=== PATIENT | female | born 1985 | race Caucasian/White ===

== ENCOUNTER 2017-05-26 12:19 | Day surgery (SDC) | payer MEDICAID ==
[~2017-05-26 12:19] MED LIST: Bupivacaine 0.5% 30 ML SDV ONE
[2017-05-26] MEDS ORDERED: Sodium Chloride 0.9% 10 ML Syringe FLUSH PRN (12:55)
[2017-05-26] MEDS ORDERED: Lidocaine 1%/Sod Bicarbonate in NS 8.4% 1 ML Syringe IV PRN (12:55)
[2017-05-26] MEDS ORDERED: Lactated Ringers 1,000 ML IV SCH (13:00)
--- NOTE | 2017-05-26 13:04 | PCM.PREANE ---
Preanesthetic Assessment - Anesthesia/Transfusion/Family Hx Anesthesia History: Prior Anesthesia Without Reaction Other Type of Anesthesia Reaction Comment: Denies any known problems in past Family History of Anesthesia Reaction: No Transfusion History: No Prior Transfusion(s) - Review of Systems General: No Symptoms Pulmonary: No Symptoms Cardiovascular: No Symptoms Gastrointestinal: No Symptoms Neurological: No Symptoms Other: Reports: Diabetes (partial), Thyroid Problems - Physical Assessment NPO Status Date: 05/25/17 NPO Status Time: 22:00 Pulse: 83 O2 Sat by Pulse Oximetry: 98 Respiratory Rate: 16 Blood Pressure: 123/80 Temperature: 98.5 F Height: 5 ft 7 in Weight: 99.3 kg ASA Class: 2 Mental Status: Alert & Oriented x3 Airway Class: Mallampati = 1 Dentition: Reports: Normal Dentition Thyro-Mental Finger Breadths: 3 Mouth Opening Finger Breadths: 3 ROM/Head Extension: Full Lungs: Clear to Auscultation, Normal Respiratory Effort Cardiovascular: Regular Rate, Regular Rhythm - Allergies Allergies/Adverse Reactions: Allergies Allergy/AdvReac Type Severity Reaction Status Date / Time No Known Allergies Allergy Verified 04/21/14 13:38 ACCOUNT EXECUTIVE KEY ACCOUNTS - Blood Blood Available: No - Acknowledgements Anesthesia Type Planned: General Anesthesia Pt an Appropriate Candidate for the Planned Anesthesia: Yes Alternatives and Risks of Anesthesia Discussed w Pt/Guardian: Yes Pt/Guardian Understands and Agrees with Anesthesia Plan: Yes PreAnesthesia Questionnaire Cardiovascular History: Reports: None Respiratory History: Reports: None, Sleep Apnea Gastrointestinal History: Reports: None Endocrine/Metabolic History: Reports: Hypothyroidism, IDDM, Obesity/BMI 30+ Oncologic (Cancer) History: Reports: None - Past Surgical History GI Surgical History: Reports: Hernia, Abdominal Female Surgical History: Reports: Section - History Comment History Comment: metformin and phentermine - SUBSTANCE USE Smoking Status *Q: Never Smoker Tobacco Use Within Last Twelve Months: No Second Hand Smoke Exposure: No Days Per Week of Alcohol Use: 0 Number of Drinks Per Day: 0 Total Drinks Per Week: 0 Recreational Drug Use History: No - HOME MEDS Home Medications: Home Meds Levothyroxine 1 tab PO ACBRK 04/21/14 [History] - CURRENT (IN HOUSE) MEDS Current Meds: Current Medications Discontinued Medications Bupivacaine HCl (Marcaine 0.5%) Confirm Administered Dose 30 ml .ROUTE .STK-MED ONE Stop: 05/26/17 12:18 Fentanyl (Sublimaze) Confirm Administered Dose 250 mcg .ROUTE .STK-MED ONE Stop: 05/26/17 13:07 Lidocaine HCl (Xylocaine-Mpf 1%) Confirm Administered Dose 4 mls @ as directed .ROUTE .STK-MED ONE Stop: 05/26/17 13:07 Midazolam HCl (Versed 1 Mg/Ml) Confirm Administered Dose 2 mg .ROUTE .STK-MED ONE Stop: 05/26/17 13:07 Ondansetron HCl (Zofran) Confirm Administered Dose 4 mg .ROUTE .STK-MED ONE Stop: 05/26/17 13:07 Propofol (Diprivan 20 Ml) Confirm Administered Dose 200 mg .ROUTE .[facility] [employer]-MED ONE Stop: 05/26/17 13:07 Rocuronium [place] (Zemuron) Confirm Administered Dose 50 mg .ROUTE .STK-MED ONE Stop: 05/26/17 13:07
--- NOTE | 2017-05-26 13:05 | PCM.OPNOTE ---
- General Post-Op/Procedure Note Date of Surgery/Procedure: 05/26/17 Operative Procedure(s): Diagnostic laparoscopy. Lysis of adhesions (20 minutes) . Right salpingo-oophorectomy Findings: Intra-abdominal evaluation with extensive adhesions between the omentum and anterior abdominal wall/umbilicus. Normal appearance of the left fallopian tube and ovary. Uterus grossly normal. Right ovary enlarged consistent with known dermoid. Significant vascular congestion around the right ovary. Pre Op Diagnosis: Ovarian cyst - likely dermoid Post-Op Diagnosis: Right ovarian dermoid Anesthesia Technique: General ET Tube Primary Surgeon: Nora Mitchell Anesthesia Provider: Paul aWlters Pathology: Right fallopian tube and ovary sent to pathology for further evaluation Fluid Replacement, Intraop: 1,900 Output, Urine Amount: 30 EBL in mLs: 10 Complications: None Condition: Good Free Text/Narrative:: The risks, benefits, indications, potential complications, and alternatives were explained to the patient and informed consent obtained. The patient was taken to the Operating Room where general anesthesia was induced without complication. The patient was placed in dorsal lithotomy with Ascencion Stirrups. The patient was then prepped and draped in the usual sterile fashion. A sterile bivalve speculum was placed into the vagina and the anterior lip of the cervix was grasped with a single tooth tenaculum. A [employer] uterine manipulator was then advanced into the cervix and attached to the cervix to allow uterine manipulation throughout the procedure. The single tooth tenaculum was removed. The speculum was removed from the vagina. A straight catherization was then performed of the bladder. Attention was then turned to the patients abdomen. A small incision was placed along scar of hernia repair. Gentle downward pressure placed with Veress, but a significant resistance encountered. Concern was perhaps that patient did not recall having a mesh placed. Decision made to abandon this site for entry. Instead area for a LUQ entry marked in the midclavicular line 2 cm below the costal margin. A Veress needle was inserted into the abdomen while tenting the abdominal wall. Intraabdominal placement was confirmed with a drop test using a saline filled syringe and low intraabdominal pressure on low flow. A small horizontal incision was made and the 5 mm blunt trocar was inserted with the 5 mm laparoscope inserted through the trocar for direct visualization of abdominal entry through the clear view lens. Once intraabdominal placement was confirmed, the blunt obturator was removed and the laparoscope was inserted and exam of the patient's abdomen revealed the findings detailed above. Of note, no mesh seen along umbilcus, but there was a large amount of omental adhesions to the anterior abdominal wall and umbilicus. Attention was turned to placement of the accessory ports. Both ports were placed approximately 10 cm lateral and 2-3 cm below the level of the umbilicus. A 5 mm skin incision was made in the left lower quadrant and a 5 mm trocar was inserted into the abdomen under direct visualization with care to avoid the abdominal wall vasculature. A second port was placed through a 5 mm skin incision in the right lower quadrant. A 5 mm trocar was inserted into the abdomen under direct visualization with care to avoid the abdominal wall vasculature. The ligasure was then used to cauterize and transect then omentum from the anterior abdominal wall. After this was completed the patient was positioned to allow better visualization of the pelvis. The tip of the [employer] manipulator was thought to be close to perforating the uterus and so was removed. No bleeding noted from this area. A sponge stick was then placed into the vagina to allow uterine manipulation. The right ovary was elevated with a blunt grasper and the right ureter was easily identified. The right infundibulopelvic ligament was grasped with the Ligasure device and doubly burned and then transected. This was done with several bites as it was quite congested. The Ligasure was then used to cauterize and transect along the fallopian tube from the level of the ovary to the uterine cornua. The right fallopian tube was then cauterized and transected at the level of the cornua. Once the right adnexa was free, it was placed into the anterior cul de sac. The RLQ trocar was removed and the skin incision was extended to 10 mm and a 10 mm trocar was then inserted into the abdomen. An Endocatch bag was placed through the RLQ port and the right adnexa was placed into the bag under direct visualization. The bag was then elevated to the anterior abdominal wall and closed. A marion clamp was used to stretch the fascia of the RLQ port and then used to remove the ovary from inside the Endocatch bag in a piecemeal fashion. Attention was turned back to the pelvis where irrigation was performed and hemostasis was confirmed of dissection bed. The RLQ trocar was removed under direct visualization and the Gabe N[employer] inlet closure device was placed into the abdomen and used to re-approximate the fascia of the 10 mm port with 0- Vicryl. The left lower quadrant trocar was then removed under direct visualization. The pneumoperitoneum was allowed to escape. The LUQ trocar was removed and lastly the camera was removed from the abdomen under direct visualization to confirm no herniation into the port site. 0.25% Marcaine was injected into the subcutaneous tissue of all skin incisions for local anesthesia. The skin incisions were re-approximated with 4-0 Monocryl in a running subcuticular fashion. Dermabond was also used to seal the incisions. Hemostasis was excellent. The sponge stick was removed from the vagina. All sponge, lap, needle, and instrument counts were correct x 2.The patient tolerated the procedure well and there were no complications.
[2017-05-26] MEDS ORDERED: Rocuronium 50 MG/5 ML Vial ONE ×2 (13:06→14:25)
[2017-05-26] MEDS ORDERED: Lidocaine 1% 4 ML ONE (13:06)
[2017-05-26] MEDS ORDERED: Propofol 200 MG/20 ML SDV ONE (13:06)
[2017-05-26] MEDS ORDERED: fentaNYL 250 MCG/5 ML SDV ONE (13:06)
[2017-05-26] MEDS ORDERED: Midazolam 1 MG/ML 2 ML SDV ONE (13:06)
[2017-05-26] MEDS ORDERED: Ondansetron 4 MG/2 ML SDV ONE (13:06)
[2017-05-26] MEDS ORDERED: fentaNYL 100 MCG/2 ML SDV IVPUSH PRN (13:33)
[2017-05-26] MEDS ORDERED: Meperidine PF 50 MG/ML Syringe IVPUSH PRN (13:33)
[2017-05-26] MEDS ORDERED: HYDROmorphone 1 MG/ML Syringe IVPUSH PRN (13:33)
[2017-05-26] MEDS ORDERED: Ondansetron 4 MG/2 ML SDV IVPUSH PRN (13:33)
[2017-05-26] MEDS ORDERED: Phenylephrine/Normal Saline 100 MCG/ML 10 ML Syringe ONE (13:39)
[2017-05-26] MEDS ORDERED: Lactated Ringers 1,000 ML ONE ×2 (13:47→15:42)
[2017-05-26] MEDS ORDERED: Dexamethasone 4 MG/ML 5 ML MDV ONE (13:50)
[2017-05-26] MEDS ORDERED: HYDROmorphone 1 MG/ML Syringe ONE (14:09)
[2017-05-26] MEDS ORDERED: Neostigmine Methylsulfate 1 MG/ML 5 ML Syringe ONE (14:29)
[2017-05-26] MEDS ORDERED: Ketorolac 30 MG/ML SDV ONE (15:11)
[2017-05-26] MEDS ORDERED: HYDROmorphone 0.5 MG/0.5 ML Syringe ONE ×2 (15:43→16:11)
--- NOTE | 2017-05-26 15:48 | PCM.POSTAN ---
POST ANESTHESIA ASSESSMENT - MENTAL STATUS Mental Status: Somnolent - VITAL SIGNS Pulse Rate: 100 SaO2: 95 Resp Rate: 13 Blood Pressure: 120/77 Temperature: 97.8 F - RESPIRATORY Respiratory Status: Respiratory Rate WNL, Airway Patent, O2 Saturation Stable, Supplemental Oxygen - CARDIOVASCULAR CV Status: Pulse Rate WNL, Blood Pressure Stable - GASTROINTESTINAL GI Status: No Symptoms - PAIN Pain Score: 0 (sleeping) - POST OP HYDRATION Hydration Status: Adequate & Stable
--- NOTE | 2017-05-26 16:43 | PCM48HPAN ---
Post Anesthesia Note - EVALUATION WITHIN 48HRS OF ANESTHETIC Vital Signs in Normal Range: Yes Patient Participated in Evaluation: Yes Respiratory Function Stable: Yes Airway Patent: Yes Cardiovascular Function Stable: Yes Hydration Status Stable: Yes Pain Control Satisfactory: Yes (says pain is under control) Nausea and Vomiting Control Satisfactory: Yes Mental Status Recovered: Yes
[2017-05-26] MEDS: Acetaminophen/oxyCODONE 325-5 MG Tab PO PRN (20:45)
[2017-05-27] MEDS: Acetaminophen/oxyCODONE 325-5 MG Tab PO PRN (05:06)
[2017-05-27 06:07] VITALS: BP 100/54
== END 2017-05-27 07:45 | disposition home or self-care (01) ==
LOC: JD.SDS 12:19
PROVIDERS: ATTEND Obstetrics & Gynecology
DX: D27.0 Benign neoplasm of right ovary (principal); N83.11 Corpus luteum cyst of right ovary; E03.9 Hypothyroidism, unspecified; G47.30 Sleep apnea, unspecified; E11.9 Type 2 diabetes mellitus without complications; E66.9 Obesity, unspecified; Z68.34 Body mass index [BMI] 34.0-34.9, adult; Z79.899 Other long term (current) drug therapy
CPT/HCPCS: 36415; 49329; 58661; 82962; 85025; A9270; J1100; J1170; J1885; J2250; J2405; J2710; J3010; J7120; 00840; J2001; J2704